=== PATIENT | female | born 1990 | race Caucasian/White ===

== ENCOUNTER 2018-05-14 07:14 | Day surgery (SDC) | payer MEDICAID, SELFPAY ==
[2018-05-14 07:36] LABS: Internal QC Validated? YES +Cl - CLEAR BKGD; Pregnancy, Urine Negative Negative
[2018-05-14 07:47] LABS: Hematocrit 40.4 % (37-47); Hemoglobin 13.5 g/dl (12.0-15.0); Mean Corp Hgb Conc 33.4 g/gl (32-36); Mean Corpuscular Hgb 29.1 pg (27.0-32.0); Mean Corpuscular Volume 87.1 fL (81-99); Mean Platelet Vol. 10.9 fl (6.2-12.0); Platelet Count 225 K/mm3 (150-450); RBC Distribution Width CV 13.3 % (11.6-14.6); RBC Distribution Width SD 41.1 fl (35.1-43.9); Red Blood Count 4.64 M/mm3 (4.2-5.4)
[2018-05-14 07:49] VITALS: BP 103/62; PULSE 64; RESP 16; TEMP 37.1; O2SAT 100; BMI 26.0
[2018-05-14 07:51] LABS: Scan Indicated on CBC? Y/N NO
--- NOTE | 2018-05-14 09:00 | FALS_PTH ---
PATIENT: TIGIST SANCHEZ LOC: [facility] [place] U#:[id number] AGE/SX: 27/F ROOM: RE05/14/[address]: Dr. Peggy Mac DO : 1990 BED: DIS: 05/14/2018 SPEC #: [id number] RECD: 05/14/18 12:33 STATUS: KIM PARTH #: [id number] KIM: 05/14/18 09:[address]: Peggy Mac DEPT: SURGICAL PATHOLOGY RECD BY: Tony Martin ENTERED: 05/14/18 15:39 SP TYPE: FALL TUBES OTHR DR: Dr. Kit Lovell MD Tissues: Fallopian tube Procedures: Surgery Specimen Level II HEADER OPERATION: Laparoscopic, right salpingectomy, removal Mirena, left partial salpingectomy PRE-OP DIAGNOSIS: Desires permanent sterilization TISSUE SUBMITTED: Right fallopian tube, left partial fallopian tube MICROSCOPIC DIAGNOSIS Right and left fallopian tubes, partial salpingectomies: Two complete segments of fallopian tubes with no pathologic change. AM:ana lilia 05/15/18 MICROSCOPIC DESCRIPTION Slides are reviewed. GROSS DESCRIPTION Received is one container labeled with the patient's name and designated right fallopian tube, left partial fallopian tube. The specimen consists of a fallopian tube with attached fimbriated end measuring 5.5 cm in length and 0.5 cm in average diameter. A normal fimbriated end is present. Foreclosure Home Inspector sections of this fallopian tube are submitted in cassette #1. Present free in the container is a fimbrial end of fallopian tube measuring 1 x 0.5 x 0.5 cm. Also free in the container is a fallopian tube segment measuring 2 cm in length and 0.4 cm in average diameter and represent the other fallopian tube. This entire fallopian tube is sectioned and submitted in cassette in #2. /AM:ana lilia 05/14/18 TC: 5 CPT: 15507 x2
[2018-05-14] MEDS: Bupivacaine Mpf 0.5% 30 ML VIAL (10:30)
--- NOTE | 2018-05-14 10:40 | DCINST_ITS ---
- Discharge Diagnoses Current Active Problems: Desires permanent sterilization You will use the following diet at home:: No restrictions, Regular Discharge Activity: May not drive while taking narcotic pain medications., May Shower Return to work on:: 05/14/18 May resume sexual activity in: No Restrictions Weight Bearing Status: Weight bearing as tolerated Lifting Restrictions: No heavy lifting greater than 25 lbs Call your doctor if your incision/area has: Sudden Increased Bleeding, Increased Pain/ Swelling, Increased Redness, Foul Smelling Discharge Call your doctor if you observe: Fever of 101 or Higher, Inability to urinate, Using more than one pad per hour, Shortness of breath, Dizziness, Chest pain, Increased palpitations (irregular heartbeat), Calf discomfort, Uncontrolled pain Suture Line Care: Avoid Pulling/Pushing Cleanse incision/area with: Soap & Water, - - You can take the bandage off when you get home Allergies/Adverse Reactions: Allergies No Known Allergies Allergy (Verified 05/07/18 09:05) Medications to take at Discharge Loratadine [Claritin] 10 mg PO DAILY 05/07/18 Multivit/Iron/FA/K/Herb No.244 [Alive Women[employer] Mv Tablet] 1 each PO DAILY 05/07/18 Orders to be completed after discharge: Type & Screen Time Frame: 05/14/18, Location: None Selected CBC-Complete Blood Cnt No Diff Time Frame: 05/14/18, Location: Laboratory ,Urine Time Frame: 05/14/18, Location: Laboratory Primary Care Physician: Kit Lovell MD [Primary Care Provider] - Test Results: Test results from this visit will be discussed in further detail at your follow- up appointment, if applicable. Please Follow Up With: Peggy Mac DO When: 1-2 weeks
--- NOTE | 2018-05-14 10:40 | PCM.OP.BLANK ---
Problem List (1) Sterilization Status: Acute Operative Report Date of Procedure: 05/14/18 Preoperative diagnosis: Desires permanent sterilization, multiparity Postoperative diagnosis: Above Surgeon: Peggy Mac DO Financial Planning Assistant: VENTURA Truong Anesthesia: General EBL: Minimal, less than 50 cc Complications: None Specimens removed: Fimbriated ends of left fallopian tube, partial segment of left fallopian tube, entire right fallopian tube Findings: Normal pelvis. Normal uterus. Simple appearing right ovarian cyst measuring approximately 3 cm in size. Left ovary normal in appearance. Right fallopian tube normal. Left fallopian tube significantly adhered to left pelvic sidewall. Normal liver edge Indications: Pt is a 27-year-old who is in a stable long-term relationship and has 3 children. She desires permanent sterilization. Alternatives for control were discussed. She is 100% certain she does not want children in the future. Risks and benefits of the procedure were discussed in detail the patient was consented. Procedure: Pt was taken to the operating room where general anesthesia was found to be adequate. The patient was placed into her dorsal lithotomy position using yellowfin stirrups. She was prepped and draped in the usual sterile fashion. A weighted speculum was placed in the vagina and the cervix was exposed. A single-tooth tenaculum was placed on the anterior lip of the cervix. A ring forcep was used Mirena IUD easily. A Ganesh cannula was placed in the uterus for manipulation. Gloves were then changed and attention was turned to the abdomen. An umbilical incision was made to accommodate a 5 mm port. Under direct visualization the camera was placed through the 5 mm umbilical incision. The abdomen was insufflated. Left and right lateral 5 mm ports were placed under direct visualization. Patient was placed in Trendelenburg. Findings were as noted above. The right fallopian tube was elevated and the LigaSure device was used to cauterize and transect along the mesosalpinx. The right fallopian tube was completely removed and sent to pathology for review. Left fallopian tube was significantly adhered to the left pelvic sidewall. The ureter was identified and noted to be far away from the left fallopian tube. The fimbriated ends of the left fallopian tube were cauterized and transected using the LigaSure device. The fimbriated ends were removed and sent to pathology. A segment of the left fallopian tube was then removed using the LigaSure device. A 1-1/2 cm segment of the left fallopian tube was left given the significant adhesions. Pictures were taken. The lateral ports were removed. The abdomen was exsufflated. The umbilical port was removed. The skin was closed in a subcuticular fashion. Dermabond was placed over the skin. All instruments from the vagina were removed. Instrument counts were correct. The patient tolerated the procedure and was sent to the recovery room in stable condition.
[2018-05-14 10:49] VITALS: BP 103/62; BP 121/76; PULSE 69; RESP 14; TEMP 36.7; O2SAT 98
[2018-05-14 11:00] VITALS: BP 103/62; BP 104/76; PULSE 64; RESP 16; O2SAT 100
[2018-05-14 11:15] VITALS: BP 103/62; BP 109/81; RESP 16; O2SAT 100
[2018-05-14 11:17] VITALS: BP 103/62; BP 110/81; PULSE 74; RESP 16; TEMP 36.2; O2SAT 99
[2018-05-14 11:54] VITALS: BP 103/62
== END 2018-05-14 12:02 | disposition home or self-care (01) ==
LOC: SDC 07:14 → AC 07:16
PROVIDERS: Family Provider Family Medicine; PCP Family Medicine; Referring Provider Obstetrics & Gynecology; Visit Provider Obstetrics & Gynecology
PROC: (CPT 58661; principal; 2018-05-14 08:45)
DX: Z30.2 Encounter for sterilization (principal); Z30.432 Encounter for removal of intrauterine contraceptive device; F17.210 Nicotine dependence, cigarettes, uncomplicated
CPT/HCPCS: 00840; 58301; 58661; 81025; 85027; 86850; 86900; 88302; J7120; J2405

== ENCOUNTER 2019-04-16 02:13 | Emergency (ER) | payer MEDICAID, SELFPAY ==
[2019-04-16 02:15] VITALS: BP 148/92; PULSE 76; RESP 18; TEMP 36.8; O2SAT 100; BMI 24.9
--- NOTE | 2019-04-16 02:33 | ED.VISSUMM ---
- ER Visit Summary Date of Service: 04/16/19 Chief Complaint: Toothache History of Present Illness: The patient is a 28 F who presents the emergency department dental pain. She states that symptoms began last night. She denies any facial swelling. She tells me she cannot see a dentist anytime soon as her significant other's could be having brain surgery. The patient denies any fevers. She is a smoker. She has a feeling on the tooth that hurts. Physical Examination: Afebrile vital signs stable Right upper second molar is tender to palpation. There is no gum swelling. There is a small filling in place. There is no overlying facial swelling or erythema. No murmurs noted on heart auscultation Emergency Department Course and Treatment: Patient was advised that antibiotics may not help her if she does not have an abscess and this is all dental caries. I really encouraged her to follow-up with dentistry as soon as possible. She is asked me for a dose of antibiotics I think it is reasonable to help her out tonight. Impression: 1. Dental pain This note was generated with [employer] dictation software. It may contain incorrect words, spelling, and punctuation that were not noted in review of the chart prior to signing ED Disposition - Plan for ED Patient: Disposition: Home or Assisted Living Instructions: Dental Cavity Prescriptions: Penicillin Vk [Pen-Vee K 250MG] 500 mg PO 4X/DAY #40 tab Prescription Printed Ketorolac [Toradol] 10 mg PO Q8H PRN #15 tab PRN Reason: pain Prescription Printed Additional Instructions: Please see your dentist as soon as possible
[2019-04-16] MEDS: Penicillin Vk 250 MG Tablet 500 MG PO (02:48)
[2019-04-16] MEDS: Ketorolac 10 MG Tablet PO (02:48)
[2019-04-16 02:52] VITALS: RESP 18
== END 2019-04-16 02:52 | disposition home or self-care (01) ==
PROVIDERS: Emergency Provider Emergency Medicine; Family Provider Family Medicine; PCP Family Medicine
DX: K02.9 Dental caries, unspecified (principal); F17.200 Nicotine dependence, unspecified, uncomplicated
CPT/HCPCS: 99283